=== PATIENT | male | born 2000 | race Caucasian/White ===

== ENCOUNTER 2021-11-12 17:48 | Emergency (ER) | payer OTHER | END 2021-11-12 21:51 | disposition home or self-care (01) | LOC: ER1 17:48 | DX: S91.311A Laceration without foreign body, right foot, initial encounter (principal); S80.811A Abrasion, right lower leg, initial encounter; W16.92XA Jumping or diving into unspecified water causing other injury, initial encounter; Y93.39 Activity, other involving climbing, rappelling and jumping off | CPT/HCPCS: 12001; 73564; 73590; 73610; 73630; 99283 ==